=== PATIENT | female | born 1965 | race African-American/Black ===

== ENCOUNTER 2019-10-06 15:29 | Inpatient (IN) | payer OTHER ==
[~2019-10-06] VITALS: Ht 170.2 cm; Wt 57.0 kg
[2019-10-06 15:33] VITALS: BP_SYST 104
[2019-10-06] MEDS ORDERED: IPRATROPIUM/ALBUTEROL SULFATE 3 ML AMPUL.NEB (DUONEB) INH ONE (15:45)
[2019-10-06] MEDS ORDERED: MORPHINE 4 MG/ML INJ. SYRINGE IVP ONE (15:45)
[2019-10-06] MEDS ORDERED: ASPIRIN 325 MG TABLET PO ONE (15:45)
[2019-10-06] MEDS ORDERED: HYDR-1189 PO (16:33)
[2019-10-06] MEDS ORDERED: VALP500S4 PO (16:33)
[2019-10-06] MEDS ORDERED: SPIR25TA PO (16:33)
[2019-10-06] MEDS ORDERED: QUET25TA34 PO (16:33)
[2019-10-06] MEDS ORDERED: MAGN800O PO (16:33)
[2019-10-06] MEDS ORDERED: ASCO500C18 PO (16:33)
[2019-10-06] MEDS ORDERED: POTA20PA30 PO (16:33)
[2019-10-06] MEDS ORDERED: LOPE2CAP PO (16:33)
[2019-10-06] MEDS ORDERED: MULT-530 PO (16:33)
[2019-10-06] MEDS ORDERED: RIVA20TA PO (16:33)
[2019-10-06] MEDS ORDERED: LOSA25TA18 PO (16:33)
[2019-10-06] MEDS ORDERED: ACET500C21 PO (16:33)
[2019-10-06] MEDS ORDERED: ONDA4TAB55 PO (16:33)
[2019-10-06] MEDS ORDERED: ESCI10TA54 PO (16:33)
[2019-10-06] MEDS ORDERED: MIDO10TA PO (16:33)
[2019-10-06] MEDS ORDERED: GABA300T25 PO ×2 (16:33)
[2019-10-06] MEDS ORDERED: PROM6.256 PO (16:33)
[2019-10-06] MEDS ORDERED: FAMO20TA8 PO (16:33)
[2019-10-06] MEDS ORDERED: AZIT-62 PO (16:33)
[2019-10-06] MEDS ORDERED: GUAI100S14 PO (16:33)
[2019-10-06] MEDS ORDERED: ATOR-1 PO (16:33)
[2019-10-06] MEDS ORDERED: MOME0.132 PO (16:33)
[2019-10-06] MEDS ORDERED: LORA2VIA32 IM (16:33)
[2019-10-06] MEDS ORDERED: METO25TA6 PO (16:33)
[2019-10-06] MEDS ORDERED: ALBU0.63 NEB (16:33)
[2019-10-06 16:43] LABS: HEMOGLOBIN 9.9 g/dL (12.0-16.0); MEAN CORPUSCULAR HGB CONC 34 % (32-36)
[2019-10-06 16:51] LABS: BASOPHILS % (AUTO) 0.7 % (0.0-2.0); EOSINOPHILS # (AUTO) 0.2 K/uL (0.0-0.4); EOSINOPHILS % (AUTO) 5.5 % (0.0-4.0); HEMATOCRIT 29.4 % (36-48); LYMPHOCYTES # (AUTO) 1.2 K/uL (1.0-5.5); LYMPHOCYTES % (AUTO) 30.3 % (20.5-51.5); MEAN CORPUSCULAR HEMOGLOBIN 32 pg (27-31); MEAN CORPUSCULAR VOLUME 96 fL (79.0-98.0); MONOCYTES # (AUTO) 0.5 K/uL (0.0-1.0); MONOCYTES % (AUTO) 13.1 % (1.7-9.3); NEUTROPHILS % (AUTO) 50.4 % (40.0-70.0); PLATELET COUNT (AUTO) 153 K/uL (130-430); RED BLOOD CELL COUNT(AUTO) 3.08 MIL/uL (4.2-6.2)
[2019-10-06 16:53] LABS: ANION GAP 4 (5-15); CALCIUM 9.2 mg/dL (8.4-11.0); CHLORIDE 103 mmol/L (98-107); CREATININE 0.53 mg/dL (0.55-1.30); GLUCOSE 115 mg/dL (70-99); SODIUM SERUM 139 mmol/L (136-145); UREA NITROGEN, BLOOD 17 mg/dL (8-21)
[2019-10-06 17:00] LABS: GFR AFRICAN AMERICAN 156 mL/min (>90)
[2019-10-06 17:01] LABS: ALANINE AMINOTRANSFERASE 22 U/L (12-78); ALBUMIN 2.9 g/dL (3.4-4.8); ASPARTATE AMINOTRANSFERASE 46 U/L (10-37); TOTAL BILIRUBIN 0.5 mg/dL (0.0-1.0)
[2019-10-06 17:21] LABS: ALCOHOL, BLOOD < 3 mg/dL (<10); POTASSIUM 4.9 mmol/L (3.5-5.1)
[2019-10-06 17:27] LABS: BILIRUBIN,URINE NEGATIVE (NEGATIVE); BLOOD, URINE NEGATIVE (NEGATIVE); CLARITY/URINE SL CLOUDY (CLEAR); COLOR,URINE YELLOW (YELLOW); GLUCOSE,URINE NEGATIVE (NEGATIVE); KETONES,URINE NEGATIVE (NEGATIVE); LEUKOCYTE ESTERASE ,URINE 2+ (NEGATIVE); NITRITE, URINE NEGATIVE (NEGATIVE); PH,URINE 7.5 (5.0-8.0); PROTEIN URINE NEGATIVE (NEGATIVE)
[2019-10-06 17:32] LABS: BARBITURATE, URINE NEGATIVE (NEG <=200); BENZODIAZEPINE, URINE NEGATIVE (NEG <=150); CANNABINOID, URINE NEGATIVE (NEG <=50); COCAINE, URINE NEGATIVE (NEG <=150); METHAMPHETAMINES SCREEN,URINE NEGATIVE (NEG <=500); OPIATE, URINE NEGATIVE (NEG <=100); PHENCYCLIDINE SCREEN,URINE NEGATIVE (NEG <=25); UR TRICYCLIC ANTIDEPRESSANTS POSITIVE (NEG <=300); URINE AMPHETAMINE NEGATIVE (NEG <=500); URINE METHADONE NEGATIVE (NEG <=200); URINE OXYCODONE SCREEN NEGATIVE (NEG <=100); URINE PROPOXYPHENE SCREEN NEGATIVE (NEG <=300)
[2019-10-06 17:44] LABS: BACTERIA,URINE MANY /HPF (None Seen); MUCUS,URINE 1+ /LPF (None Seen); RBC,URINE 0-3 /HPF (0-3); WBC,URINE 50-80 /HPF (0-3)
[2019-10-06] MEDS ORDERED: cefTRIAXone 1 GM IVPB PREMIX 50 ML IV ONE (17:45)
[2019-10-06] MEDS ORDERED: LEVOFLOXACIN 500 MG/D5W 100 ML IV ONE (18:30)
[2019-10-06 20:29] VITALS: BP_SYST 120
[2019-10-07 01:01] VITALS: BP_SYST 103
[2019-10-07] MEDS ORDERED: HYDROcodone/ACETAMIN 5-325 MG TAB (NORCO/ VICODIN) PO PRN (05:00)
[2019-10-07] MEDS ORDERED: LOPERAMIDE HCL 2 MG CAPSULE PO PRN (05:00)
[2019-10-07] MEDS ORDERED: guaiFENesin 200 MG/10 ML UDC PO PRN (05:00)
[2019-10-07] MEDS ORDERED: IPRATROPIUM/ALBUTEROL SULFATE 3 ML AMPUL.NEB (DUONEB) INH PRN (05:00)
[2019-10-07] MEDS ORDERED: LORazepam 2 MG/ML VIAL IM PRN (05:00)
[2019-10-07] MEDS ORDERED: ONDANSETRON 4 MG ODT TAB PO PRN (05:00)
[2019-10-07 06:43] LABS: ALANINE AMINOTRANSFERASE 19 U/L (12-78); ALBUMIN 3.2 g/dL (3.4-4.8); ASPARTATE AMINOTRANSFERASE 25 U/L (10-37); CALCIUM 9.7 mg/dL (8.4-11.0); CHLORIDE 101 mmol/L (98-107); CREATININE 0.56 mg/dL (0.55-1.30); GLUCOSE 77 mg/dL (70-99); POTASSIUM 4.5 mmol/L (3.5-5.1); SODIUM SERUM 137 mmol/L (136-145); TOTAL BILIRUBIN 0.4 mg/dL (0.0-1.0); UREA NITROGEN, BLOOD 15 mg/dL (8-21); VALPROIC ACID 47 ug/mL (50-100)
[2019-10-07 06:50] LABS: GFR AFRICAN AMERICAN 146 mL/min (>90)
[2019-10-07 06:51] LABS: ANION GAP < 3 (5-15)
[2019-10-07 07:00] LABS: BASOPHILS % (AUTO) 1.1 % (0.0-2.0); EOSINOPHILS # (AUTO) 0.2 K/uL (0.0-0.4); EOSINOPHILS % (AUTO) 5.4 % (0.0-4.0); HEMATOCRIT 32.8 % (36-48); HEMOGLOBIN 11.1 g/dL (12.0-16.0); LYMPHOCYTES # (AUTO) 1.3 K/uL (1.0-5.5); LYMPHOCYTES % (AUTO) 34.4 % (20.5-51.5); MEAN CORPUSCULAR HEMOGLOBIN 33 pg (27-31); MEAN CORPUSCULAR HGB CONC 34 % (32-36); MEAN CORPUSCULAR VOLUME 98 fL (79.0-98.0); MONOCYTES # (AUTO) 0.4 K/uL (0.0-1.0); NEUTROPHILS # (AUTO) 1.8 K/uL (1.8-7.7); NEUTROPHILS % (AUTO) 48.1 % (40.0-70.0); PLATELET COUNT (AUTO) 142 K/uL (130-430); RED BLOOD CELL COUNT(AUTO) 3.35 MIL/uL (4.2-6.2); RED CELL DISTRIBUTION WIDTH 13.8 % (9.0-15.0); WHITE BLOOD COUNT (AUTO) 3.8 K/uL (4.8-10.8)
[2019-10-07 08:05] VITALS: BP_SYST 104
[2019-10-07] MEDS: FAMOTIDINE 20 MG TABLET PO SCH (08:56)
[2019-10-07] MEDS: POTASSIUM CHLORIDE 20 MEQ/PKT PACKET PO SCH (08:56)
[2019-10-07] MEDS: ASCORBIC ACID 500 MG TABLET PO SCH (08:56)
[2019-10-07] MEDS: SPIRONOLACTONE 25 MG TABLET (ALDACTONE) PO SCH (08:56)
[2019-10-07] MEDS: LOSARTAN POTASSIUM 25 MG TABLET PO SCH (08:56)
[2019-10-07] MEDS: PROMETHAZINE HCL 6.25 MG/5 ML UDC PO SCH ×3 (08:56→21:37)
[2019-10-07] MEDS: CITALOPRAM HYDROBROMIDE 20 MG TABLET PO SCH (08:56)
[2019-10-07] MEDS: AZITHROMYCIN 250 MG TABLET PO SCH (08:56)
[2019-10-07] MEDS: MULTIVITS,CA,MINERALS/IRON/FA 1 TABLET PO SCH (08:56)
[2019-10-07] MEDS: VALPROIC ACID 250 MG CAPSULE (DEPAKENE) PO SCH ×2 (08:56→21:38)
[2019-10-07] MEDS: QUEtiapine FUMARATE 25 MG TABLET PO SCH ×2 (08:56→21:37)
[2019-10-07] MEDS ORDERED: METOPROLOL TARTRATE 25 MG TABLET PO SCH (09:00)
[2019-10-07] MEDS ORDERED: ESCITALOPRAM OXALATE 10 MG TABLET PO SCH (09:00)
[2019-10-07] MEDS: GABAPENTIN 300 MG CAPSULE PO SCH ×3 (09:10→21:35)
[2019-10-07 12:00] VITALS: BP_SYST 104
[2019-10-07 12:28] VITALS: BP_SYST 89
[2019-10-07] MEDS: MIDODRINE HCL 5 MG TABLET (PROAMATINE) PO PRN (15:45)
[2019-10-07] MEDS: MOMETASONE FUROATE 220 MCG INH SCH ×2 (15:47→19:00)
[2019-10-07 16:50] VITALS: BP_SYST 82
[2019-10-07] MEDS ORDERED: NACL 0.9% 1,000 ML IV ONE (17:30)
[2019-10-07] MEDS ORDERED: PIPERACILLIN/TAZO 4.5GM/DEX-IS 100 ML IV ONE (18:00)
[2019-10-07 20:00] VITALS: BP_SYST 95
[2019-10-07] MEDS: CARVEDILOL 6.25 MG TABLET (COREG) PO SCH (21:00)
[2019-10-07] MEDS: RIVAROXABAN 10 MG TABLET PO SCH (21:37)
[2019-10-07] MEDS: ATORVASTATIN 20 MG TABLET PO SCH (21:37)
[2019-10-08] VITALS (7 sets, daily range): BP systolic 80–121
[2019-10-08] MEDS: MIDODRINE HCL 5 MG TABLET (PROAMATINE) PO PRN ×2 (03:59→15:30)
[2019-10-08] MEDS: PIPERACILLIN/TAZO 4.5GM/DEX-IS 100 ML IV SCH ×3 (04:00→17:21)
[2019-10-08] MEDS: MOMETASONE FUROATE 220 MCG INH SCH ×2 (07:00→21:17)
[2019-10-08 08:09] LABS: BASOPHILS % (AUTO) 1.1 % (0.0-2.0); EOSINOPHILS # (AUTO) 0.2 K/uL (0.0-0.4); HEMATOCRIT 32.6 % (36-48); HEMOGLOBIN 11.1 g/dL (12.0-16.0); LYMPHOCYTES # (AUTO) 1.4 K/uL (1.0-5.5); LYMPHOCYTES % (AUTO) 40.4 % (20.5-51.5); MEAN CORPUSCULAR HEMOGLOBIN 33 pg (27-31); MEAN CORPUSCULAR HGB CONC 34 % (32-36); MEAN CORPUSCULAR VOLUME 97 fL (79.0-98.0); MONOCYTES # (AUTO) 0.3 K/uL (0.0-1.0); MONOCYTES % (AUTO) 10.4 % (1.7-9.3); NEUTROPHILS # (AUTO) 1.4 K/uL (1.8-7.7); NEUTROPHILS % (AUTO) 41.1 % (40.0-70.0); PLATELET COUNT (AUTO) 144 K/uL (130-430); RED BLOOD CELL COUNT(AUTO) 3.34 MIL/uL (4.2-6.2); RED CELL DISTRIBUTION WIDTH 13.4 % (9.0-15.0); WHITE BLOOD COUNT (AUTO) 3.3 K/uL (4.8-10.8)
[2019-10-08 09:13] LABS: ALANINE AMINOTRANSFERASE 18 U/L (12-78); ALBUMIN 2.9 g/dL (3.4-4.8); ANION GAP 6 (5-15); ASPARTATE AMINOTRANSFERASE 22 U/L (10-37); CHLORIDE 107 mmol/L (98-107); GLUCOSE 76 mg/dL (70-99); POTASSIUM 4.1 mmol/L (3.5-5.1); SODIUM SERUM 143 mmol/L (136-145); THYROID STIMULATING HORMONE 1.88 uIu/mL (0.36-3.74); TOTAL BILIRUBIN 0.5 mg/dL (0.0-1.0); UREA NITROGEN, BLOOD 16 mg/dL (8-21)
[2019-10-08 09:15] LABS: GFR AFRICAN AMERICAN 135 mL/min (>90)
[2019-10-08] MEDS: PROMETHAZINE HCL 6.25 MG/5 ML UDC PO SCH ×3 (09:35→21:15)
[2019-10-08] MEDS: FAMOTIDINE 20 MG TABLET PO SCH (09:35)
[2019-10-08] MEDS: CARVEDILOL 6.25 MG TABLET (COREG) PO SCH ×2 (09:35→21:00)
[2019-10-08] MEDS: MULTIVITS,CA,MINERALS/IRON/FA 1 TABLET PO SCH (09:35)
[2019-10-08] MEDS: AZITHROMYCIN 250 MG TABLET PO SCH (09:35)
[2019-10-08] MEDS: POTASSIUM CHLORIDE 20 MEQ/PKT PACKET PO SCH (09:36)
[2019-10-08] MEDS: SPIRONOLACTONE 25 MG TABLET (ALDACTONE) PO SCH (09:36)
[2019-10-08] MEDS: GABAPENTIN 300 MG CAPSULE PO SCH ×3 (09:37→21:15)
[2019-10-08] MEDS: VALPROIC ACID 250 MG CAPSULE (DEPAKENE) PO SCH ×2 (09:37→21:14)
[2019-10-08] MEDS: ASCORBIC ACID 500 MG TABLET PO SCH (09:37)
[2019-10-08] MEDS: LOSARTAN POTASSIUM 25 MG TABLET PO SCH (09:37)
[2019-10-08] MEDS: CITALOPRAM HYDROBROMIDE 20 MG TABLET PO SCH (09:37)
[2019-10-08 09:54] LABS: CHOLESTEROL 132 mg/dL (<200); HDL CHOLESTEROL 40 mg/dL (>55); LDL CHOLESTEROL 76 mg/dL (<100); TRIGLYCERIDES 44 mg/dL (30-150)
[2019-10-08] MEDS: ATORVASTATIN 20 MG TABLET PO SCH (21:14)
[2019-10-08] MEDS: RIVAROXABAN 10 MG TABLET PO SCH (21:16)
[2019-10-09 01:34] VITALS: BP_SYST 102
[2019-10-09] MEDS: PIPERACILLIN/TAZO 4.5GM/DEX-IS 100 ML IV SCH ×3 (01:45→19:08)
[2019-10-09 06:53] LABS: BASOPHILS % (AUTO) 1.2 % (0.0-2.0); EOSINOPHILS # (AUTO) 0.2 K/uL (0.0-0.4); HEMATOCRIT 27.5 % (36-48); HEMOGLOBIN 9.6 g/dL (12.0-16.0); LYMPHOCYTES # (AUTO) 1.3 K/uL (1.0-5.5); MEAN CORPUSCULAR HEMOGLOBIN 34 pg (27-31); MEAN CORPUSCULAR HGB CONC 35 % (32-36); MEAN CORPUSCULAR VOLUME 97 fL (79.0-98.0); MONOCYTES # (AUTO) 0.4 K/uL (0.0-1.0); MONOCYTES % (AUTO) 11.7 % (1.7-9.3); NEUTROPHILS # (AUTO) 1.6 K/uL (1.8-7.7); NEUTROPHILS % (AUTO) 44.1 % (40.0-70.0); PLATELET COUNT (AUTO) 143 K/uL (130-430); RED BLOOD CELL COUNT(AUTO) 2.84 MIL/uL (4.2-6.2); RED CELL DISTRIBUTION WIDTH 13.6 % (9.0-15.0); WHITE BLOOD COUNT (AUTO) 3.6 K/uL (4.8-10.8)
[2019-10-09] MEDS: MOMETASONE FUROATE 220 MCG INH SCH (07:00)
[2019-10-09 08:00] VITALS: BP_SYST 84
[2019-10-09 08:24] LABS: ALBUMIN 2.8 g/dL (3.4-4.8); CREATININE 0.65 mg/dL (0.55-1.30); POTASSIUM 4.4 mmol/L (3.5-5.1); TOTAL BILIRUBIN 0.4 mg/dL (0.0-1.0)
[2019-10-09] MEDS: CARVEDILOL 6.25 MG TABLET (COREG) PO SCH (09:00)
[2019-10-09] MEDS: PROMETHAZINE HCL 6.25 MG/5 ML UDC PO SCH ×3 (09:00→14:56)
[2019-10-09] MEDS: LOSARTAN POTASSIUM 25 MG TABLET PO SCH (09:00)
[2019-10-09] MEDS: POTASSIUM CHLORIDE 20 MEQ/PKT PACKET PO SCH (10:05)
[2019-10-09] MEDS: FAMOTIDINE 20 MG TABLET PO SCH (10:06)
[2019-10-09] MEDS: VALPROIC ACID 250 MG CAPSULE (DEPAKENE) PO SCH (10:06)
[2019-10-09] MEDS: AZITHROMYCIN 250 MG TABLET PO SCH (10:07)
[2019-10-09] MEDS: CITALOPRAM HYDROBROMIDE 20 MG TABLET PO SCH (10:07)
[2019-10-09] MEDS: SPIRONOLACTONE 25 MG TABLET (ALDACTONE) PO SCH (10:07)
[2019-10-09] MEDS: MULTIVITS,CA,MINERALS/IRON/FA 1 TABLET PO SCH (10:07)
[2019-10-09] MEDS: GABAPENTIN 300 MG CAPSULE PO SCH (10:07)
[2019-10-09] MEDS: ASCORBIC ACID 500 MG TABLET PO SCH (10:07)
[2019-10-09 12:00] VITALS: BP_SYST 98
[2019-10-09 16:12] VITALS: BP_SYST 97
[2019-10-09 18:35] VITALS: BP_SYST 97
== END 2019-10-09 20:30 | DRG 312 ==
LOC: SED 15:29 → STU 18:31
PROVIDERS: ADMIT Internal Medicine Infectious Disease; ATTEND Internal Medicine Infectious Disease
DX: R55 Syncope and collapse (principal); I42.0 Dilated cardiomyopathy; I50.40 Unspecified combined systolic (congestive) and diastolic (congestive) heart failure; E46 Unspecified protein-calorie malnutrition; N39.0 Urinary tract infection, site not specified; I69.354 Hemiplegia and hemiparesis following cerebral infarction affecting left non-dominant side; Z68.1 Body mass index [BMI] 19.9 or less, adult; D64.9 Anemia, unspecified; G89.4 Chronic pain syndrome; R07.9 Chest pain, unspecified; F31.9 Bipolar disorder, unspecified; I95.9 Hypotension, unspecified; I48.91 Unspecified atrial fibrillation; I49.3 Ventricular premature depolarization; I25.10 Atherosclerotic heart disease of native coronary artery without angina pectoris; Z95.1 Presence of aortocoronary bypass graft; Z91.013 Allergy to seafood; Z91.018 Allergy to other foods; Z95.2 Presence of prosthetic heart valve; Z79.01 Long term (current) use of anticoagulants; Z79.899 Other long term (current) drug therapy
CPT/HCPCS: 36415; 70450-TC; 71045; 72170-TC; 80053; 80061; 80164-TC; 80307; 81000-TC; 82550-TC; 83605; 83880; 84443-TC; 84484; 85025; 86710; 87040-TC; 87081; 87086; 87186-TC; 93005; 93306; 94640; 96365; 96367; 96375; 99285; G0378; G0482; J0696; J1956; J2270; J2543; J7030; Q0144; Q0169